=== PATIENT | male | born 1995 | race Caucasian/White ===

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

== ENCOUNTER 2017-04-08 20:28 | Emergency (ER) | payer BC ==
[~2017-04-08] VITALS: Ht 188 cm; Wt 97.7 kg
[~2017-04-08 20:28] MED LIST changes: +LOPRESSOR 225 MG/TAB PO; +SYNTHROID0.088 MG/T PO; +TAMBOCOR 1100 MG/TAB PO; +TAMBOCOR50 MG PO; +ZOFRAN ODT4 MG PO
[2017-04-08 20:35] VITALS: BP 150/77
[2017-04-08 22:29] LABS: BASO # 0.1 (0.0-0.2); BASO % 0.4 % (0.0-2.0); EOS % 0.3 % (0-4.0); GRAN # 9.2 (1.4-6.5); GRAN % 76.3 % (42.2-75.2); HEMATOCRIT 42.2 % (36.0-47.0); LYMPH # 1.9 (1.2-3.4); LYMPH % 15.7 % (20.0-51.0); MEAN CELL VOLUME 92 fl (80.0-95.0); MEAN CORPUSCULAR HEMOGLOBIN 33 pg (26.0-32.0); MEAN CORPUSCULAR HGB CONC 36 g/dl (33.0-37.0); MEAN PLATELET VOLUME 9.2 fl (7.4-10.4); MONO # 0.8 (0.1-0.6); PLATELET COUNT 255 K/mm3 (130-400); WHITE BLOOD COUNT 12.1 K/mm3 (4.8-10.8)
[2017-04-08 22:41] LABS: ADJUSTED CALCIUM 9.1 mg/dL (8.4-10.2); ALBUMIN 4.8 gm/dL (3.5-5.0); BILIRUBIN,TOTAL 1.8 mg/dL (0.0-1.0); CALCIUM 9.7 mg/dL (8.4-10.2); CREATININE, serum 1.15 mg/dL (0.66-1.25); POTASSIUM 3.8 mmol/L (3.4-5.0)
[2017-04-08 23:46] VITALS: PULSE 60; TEMP 97.6
== END 2017-04-08 23:46 | disposition home or self-care (01) ==
LOC: COL.ER 20:28
PROVIDERS: Emergency Medicine
DX: F10.129 Alcohol abuse with intoxication, unspecified (principal); E03.9 Hypothyroidism, unspecified; Z23 Encounter for immunization
CPT/HCPCS: J2405; J7030

== ENCOUNTER 2018-02-18 08:24 | Day surgery (SDC) | payer BC ==
[~2018-02-18] VITALS: Ht 188 cm; Wt 94.7 kg
[2018-02-18 09:20] VITALS: BP 120/62; PULSE 66; TEMP 98
[2018-02-18 09:52] VITALS: BP 141/71; PULSE 61
[2018-02-18 10:15] VITALS: BP 120/62; PULSE 66; TEMP 97.8
== END 2018-02-18 11:14 | disposition home or self-care (01) ==
LOC: COL.CAR 08:24
DX: Z45.09 Encounter for adjustment and management of other cardiac device (principal); J45.909 Unspecified asthma, uncomplicated; Z88.0 Allergy status to penicillin; Z88.1 Allergy status to other antibiotic agents
CPT/HCPCS: J2250; J3010; J7050

== ENCOUNTER → 2018-02-27 | Emergency (ER) | payer BC ==
[2018-02-27 13:10] VITALS: BP 121/68; PULSE 89; TEMP 98.3
== END ==
LOC: COL.ER 13:07
DX: S21.119D Laceration without foreign body of unspecified front wall of thorax without penetration into thoracic cavity, subsequent encounter (principal); X58.XXXD Exposure to other specified factors, subsequent encounter